=== PATIENT | female | born 1995 | race Two or more races ===

== ENCOUNTER 2018-11-19 06:29 | Emergency (ER) | payer MEDICAID, OTHER ==
[~2018-11-19] VITALS: Ht 167.6 cm; Wt 66.2 kg
[2018-11-19 06:34] VITALS: BP 122/78
[2018-11-19] MEDS ORDERED: IBUPROFEN 400 MG TABLET ONE (07:13)
[2018-11-19] MEDS: IBUPROFEN 400 MG TABLET PO ONE (07:20)
== END 2018-11-19 07:39 | disposition home or self-care (01) ==
LOC: ER 06:31
DX: S13.8XXA Sprain of joints and ligaments of other parts of neck, initial encounter (principal); S39.012A Strain of muscle, fascia and tendon of lower back, initial encounter; Z88.5 Allergy status to narcotic agent; V49.59XA Passenger injured in collision with other motor vehicles in traffic accident, initial encounter; Y93.89 Activity, other specified; Y92.413 State road as the place of occurrence of the external cause; Y99.8 Other external cause status
CPT/HCPCS: 84703; 99283; A4606; J7030